=== PATIENT | male | born 1945 | race Caucasian/White ===

== ENCOUNTER 2025-05-07 10:50 | Outpatient (CLI) | payer OTHER ==
--- NOTE | 2025-05-07 12:00 | ELECTROCARDIOGRAPH REPORT ---
[facility] Test Date: 2025-05-07 Test Time: 11:44:06 Pat Name: KEENA HAWTHORNE Department: PRE/OP CARDIOLOGY Patient ID: [id number] Room: Gender: M Wrap Yarn Sorter: : 1945 Requested By: RASHI PEREZ Order Number: [id number] Reading MD: Dr. AUSTIN Abarca Measurements Intervals [place] Rate: 48 P: 0 WI: 0 QRS: 46 QRSD: 99 T: -8 QT: 459 QTc: 411 Interpretive Statements Atrial fibrillation Borderline T abnormalities, inferior leads Electronically Signed On 05-07-2025 17:34:[address] AUSTIN Abarca Please click the below link to view image of tracing.
--- NOTE | 2025-05-07 18:49 | CARDIOLOGY REPORT ---
APPROVED REPORT EXAM: Comprehensive 2D, Doppler, and color-flow Echocardiogram. Patient Location: OUT-PATIENT Blood Pressure: 133/76 mmHg Heart Rate: 40s bpm Rhythm: ATRIAL FIBRILLATION Indications CORONARY ARTERY DISEASE Cathode Maker: AMITA Previous echo: none available 2D Dimensions RVDd 4.4 cm IVSd 1.5 (0.7-1.1cm) LVDd 5.0 cm PWd 1.1 (0.7-1.1cm) RA Major 7.8 cm IVSs 1.7 (0.8-1.2cm) RA Minor 7.3 cm LVDs 2.5 (2.5-4.0cm) PWs 1.5 (0.8-1.2cm) LVOT Diameter 2.26 (1.8-2.4cm) LVEF(%) 81.0 (>50%) Ao Asc Diam. 3.87 cm LA Volume 141 (18-58mL) FS (%) 49.9 % SV 97.9 ml M-Mode Dimensions Left Atrium(MM) 5.12 (2.5-4.0cm) IVSd 0.83 (0.7-1.1cm) LVDd 5.91 (4.0-5.6cm) Aortic Root 3.46 (2.2-3.7cm) PWd 0.86 (0.7-1.1cm) Aortic Cusp Exc 1.41 (1.5-2.0cm) IVSs 1.59 cm LVDs 3.60 (2.0-3.8cm) FS (%) 39 % PWs 1.69 cm ESV(Teich) 54.6 ml LVEF(%) 69 (>50%) Biplane 2D LA Volumes LA ESV A2C 128.86 mL/m2 LA ESV A4C 153.06 mL/m2 Aortic Valve AoV Peak Maged. 198.8 cm/s AoV VTI 42.3 cm AO Peak GR. 15.8 mmHg AO Mean GR. 8 mmHg LVOT VTI 25.39 cm LVOT Peak Maged. 115.7 cm/s MEGAN (VMAX) 2.33 cm2 MEGAN (VTI) 2.40 cm2 Mitral Valve MV PHT 60 ms MVA (PHT) 3.64 cm2 Tricuspid Valve TR P. Velocity 254 cm/s RAP ESTIMATE 10 mmHg TR Peak Gr. 26 mmHg RVSP 36 mmHg LEFT VENTRICLE Normal LV size and wall thickness. Overall systolic function is normal. Prominent septal knuckle measuring 1.5 cm without LVOT gradient at rest. LVEF is 65-70%. RIGHT VENTRICLE RV is moderately dilated in size with mildly reduced function. RVSP is estimated at 36 mmHg. ATRIA Left atrium is severely dilated. Right atrium is severely dilated. AORTIC VALVE Trileaflet AV appears mildly sclerotic without stenosis insufficiency. MITRAL VALVE Mild MV annular calcification without stenosis. Mild regurgitation. TRICUSPID VALVE TV appears structurally normal with moderate regurgitation. PULMONIC VALVE Normal PV without stenosis, physiologic insufficiency. GREAT VESSELS Aortic root is normal in size. Ascending aorta is dilated. PERICARDIUM Normal pericardium. No effusion. Other Information Study Quality: Adequate Conclusion Normal LV size and wall thickness. Overall systolic function is normal. Prominent septal knuckle measuring 1.5 cm without LVOT gradient at rest. LVEF is 65-70%. RV is moderately dilated in size with mildly reduced function. RVSP is estimated at 36 mmHg. Left atrium is severely dilated. Right atrium is severely dilated. Trileaflet AV appears mildly sclerotic without stenosis insufficiency. Mild MV annular calcification without stenosis. Mild regurgitation. TV appears structurally normal with moderate regurgitation. Ascending aorta is dilated. Normal pericardium. No effusion.
== END 2025-05-07 23:59 | disposition home or self-care (01) ==
LOC: CARD DIAG 10:50
PROVIDERS: ATTEND Chiropractor
DX: I08.8 Other rheumatic multiple valve diseases (principal); I25.89 Other forms of chronic ischemic heart disease; I48.91 Unspecified atrial fibrillation
CPT/HCPCS: 93005; 93306